=== PATIENT | male | born 1945 | race Caucasian/White ===

== ENCOUNTER 2016-11-01 07:35 | Day surgery (SDC) | payer MEDICARE, BC ==
[2016-10-31 15:36] LABS: BASOPHILS 0.5 % (0-2); EOSINOPHILS 1.1 % (0-7); HEMATOCRIT 44.2 % (42.0-54.0); HEMOGLOBIN 14.8 g/dL (13.5-17.5); IMMATURE GRANULOCYTES 0.6 % (0-5); LYMPHOCYTES 16.7 % (15-50); MCH 31.8 pg (26.0-34.0); MCHC 33.5 g/dL (31.0-37.0); MCV 94.8 fL (80.0-100.0); MONOCYTES 10.7 % (2-11); NEUTROPHILS 70.4 % (40-80); PLATELET COUNT 181 10x3/uL (130-400); RBC 4.66 10x6/uL (4.20-6.10); RDW 14.1 % (11.5-14.5); WBC 6.4 10x3/uL (4.8-10.8)
[2016-10-31 15:50] LABS: ANION GAP 8.4 mmol/L (8-16); CALCIUM 9.4 mg/dL (8.5-10.1); CARBON DIOXIDE 31.9 mmol/L (21.0-32.0); CREATININE - SERUM 1.3 mg/dL (0.6-1.3); POTASSIUM - SERUM 3.3 mmol/L (3.5-5.1)
[2016-10-31 15:53] LABS: APTT 24.9 SECONDS (22.8-39.4); INR 1.4 (0.85-1.17)
[~2016-11-01] VITALS: Ht 177.8 cm; Wt 104.3 kg
--- NOTE | ~2016-11-01 | OP ---
PATIENT NAME: RADHA GIBSON MEDICAL RECORD: [id number] :43 [facility]: SURGEON: SUKHI CASTILLO DPM DATE OF OPERATION: 11/01/2016 PREOPERATIVE DIAGNOSIS: Arthritis, right first metatarsophalangeal joint. POSTOPERATIVE DIAGNOSIS: Arthritis, right first metatarsophalangeal joint. PROCEDURE: Right first MPJ fusion. ANESTHESIA: Local with IV sedation utilizing lidocaine and Marcaine plain, approximately 15 cc on the right first ray. HEMOSTASIS: Right thigh tourniquet at 350 mmHg. PREOPERATIVE DETAILS: The patient was taken to the OR, placed on the operating table in a supine position followed by induction of general anesthesia and infiltration of local anesthetic. The right lower extremity was then prepped and draped in the usual aseptic technique followed by exsanguination of extremity and inflation of tourniquet. A 15-blade was used to create a 5 cm linear incision over the dorsal aspect of the right first MPJ. The incision was deepened down through subcutaneous tissue. A linear periosteal incision was made and the soft tissues freed from around the first MPJ. Rongeur was used to remove all spurring. McGlamry scoop elevator was used to free the plantar structures. A guidewire was placed in the head of the first metatarsal. A cup reamer was used to remove the cartilage from the head of the first metatarsal. Following this, the curette was used to remove what was left of the cartilage on the base of the proximal phalanx of the hallux. Temporary fixation was then placed holding the hallux in the proper position at which time a 5-hole plate with one of the holes going across the fusion site was placed with excellent rigid fixation and excellent alignment of the hallux. The wound was flushed and the deep tissue was repaired with 2-0 Vicryl, the subcutaneous tissue with 4-0 Rapide and the skin was closed with 4-0 Rapide in a subcuticular technique followed by Dermabond, Adaptic, 4 x 4 and Conform were used to dress the wound followed by application of a modified Herron compression dressing. Tourniquet was deflated. POSTOPERATIVE DETAILS: The patient tolerated the procedure well and left the OR with vital signs stable and vascular status at preop levels. The patient was transported to recovery per anesthesia in stable condition. 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
[~2016-11-01 07:35] MED LIST: AUGMENTIN 500-11 TA1 PO; BETA CAROT10000 UNIT PO; CALCIUM 500 + D1 TAB PO; CELLCEPT500 MG PO; CO Q-10200 MG PO; COUMADIN1 MG PO; COZAAR100 MG PO; DYAZIDE 37.5/251 CAP PO; LIPITOR20 MG PO; LUTEIN20 MG PO; METOPROLOL TART50 MG PO; PREDNISONE10 MG PO; SANDIMMUNE25 MG PO; VIBRAMYCIN50 MG PO; VITAMIN B-121000 MCG PO; VITAMIN D250000 UNIT PO; VITAMIN E400 UNI2 PO; VOLTAREN100 GM TOPICAL; ZANTAC150 MG PO; [UNRECOGNIZED DRUG - OTHER] EACH EYE
[2016-11-01 09:08] VITALS: BP 159/94; Ht 177.8 cm; Wt 104.3 kg
== END 2016-11-01 14:30 | disposition home or self-care (01) ==
LOC: D.OPS 07:35 → D.PAN 10:00 → D.OPS 10:00 → D.PAN 13:45 → D.OPS 14:30
PROVIDERS: Anesthesiology
DX: M13.871 Other specified arthritis, right ankle and foot (principal)